=== PATIENT | male | born 1990 ===

== ENCOUNTER 2021-09-30 05:45 | Emergency (ER) | payer SELFPAY ==
[2021-09-30 05:55] VITALS: BP 132/78
== END 2021-10-01 05:51 | disposition left against medical advice (07) ==
LOC: ED 05:45
DX: S01.91XA Laceration without foreign body of unspecified part of head, initial encounter (principal); Z53.21 Procedure and treatment not carried out due to patient leaving prior to being seen by health care provider; X58.XXXA Exposure to other specified factors, initial encounter; Y93.89 Activity, other specified; Y92.89 Other specified places as the place of occurrence of the external cause; Y99.8 Other external cause status